=== PATIENT | male | born 1965 | race Caucasian/White ===

== ENCOUNTER 2024-08-15 08:20 | Day surgery (SDC) | payer OTHER ==
[2024-08-15] MEDS ORDERED: Midazolam 1 MG/ML 2 ML SDV IV ONE (08:21)
[2024-08-15] MEDS ORDERED: Propofol 200 MG/20 ML SDV IV ONE (08:21)
[2024-08-15] MEDS ORDERED: Sodium Chloride 0.9% 10 ML Syringe FLUSH PRN (08:30)
[2024-08-15] MEDS: Lactated Ringers 1,000 ML IV SCH (09:20)
== END 2024-08-15 11:40 | disposition home or self-care (01) ==
LOC: FB.SDS 08:20
PROVIDERS: ATTEND Surgery
DX: K29.50 Unspecified chronic gastritis without bleeding (principal); K20.0 Eosinophilic esophagitis; K29.80 Duodenitis without bleeding; K40.90 Unilateral inguinal hernia, without obstruction or gangrene, not specified as recurrent; K42.9 Umbilical hernia without obstruction or gangrene; K44.9 Diaphragmatic hernia without obstruction or gangrene
CPT/HCPCS: 00731; 43239; 88305; 88342; J2250; J2704; J7120

== ENCOUNTER 2025-03-13 06:12 | Day surgery (SDC) | payer OTHER ==
[2025-03-13] MEDS ORDERED: diphenhydrAMINE 50 MG/ML SDV IVPUSH ONE (06:13)
[2025-03-13] MEDS ORDERED: Ketorolac 30 MG/ML SDV IVPUSH ONE (06:13)
[2025-03-13] MEDS ORDERED: Midazolam 1 MG/ML 2 ML SDV IV ONE (06:13)
[2025-03-13] MEDS ORDERED: Lidocaine 1% PF 2 ML SDV IV ONE (06:13)
[2025-03-13] MEDS ORDERED: Ondansetron 4 MG/2 ML SDV IVPUSH ONE (06:13)
[2025-03-13] MEDS ORDERED: fentaNYL 100 MCG/2 ML SDV IV ONE (06:13)
[2025-03-13] MEDS ORDERED: Dexamethasone 4 MG/ML 5 ML MDV IVPUSH ONE (06:13)
[2025-03-13] MEDS ORDERED: Propofol 200 MG/20 ML SDV IV ONE (06:13)
[2025-03-13] MEDS: Lidocaine 1% with EPINEPHrine 1:100,000 20 ML MDV INJECT ONE ×2 (07:05)
[2025-03-13] MEDS: Lactated Ringers 1,000 ML IV SCH (07:20)
== END 2025-03-13 11:02 | disposition home or self-care (01) ==
LOC: FB.SDS 06:12
PROVIDERS: ATTEND Surgery
DX: K40.90 Unilateral inguinal hernia, without obstruction or gangrene, not specified as recurrent (principal); D17.6 Benign lipomatous neoplasm of spermatic cord; K42.9 Umbilical hernia without obstruction or gangrene; E66.9 Obesity, unspecified; Z68.33 Body mass index [BMI] 33.0-33.9, adult; Z79.899 Other long term (current) drug therapy
CPT/HCPCS: 00830; 49505; 55520; 88302; 88304; C1781; J0665; J0690; J1100; J1200; J1885; J2003; J2004; J2250; J2405; J2704; J3010; J7120